=== PATIENT | female | born 1945 | race Caucasian/White ===

== ENCOUNTER 2016-07-01 09:59 | Emergency (ER) | payer OTHER, MEDICARE ==
[~2016-07-01] VITALS: Ht 167.6 cm; Wt 85.7 kg
[~2016-07-01 09:59] MED LIST: RISPERIDONE0.5 MG PO; SERTRALINE HYD100 MG PO; SIMVASTATIN40 MG PO; SUPER B COMPLEX1 TAB PO; VIACTIV CALCIUM PO
--- NOTE | 2016-07-01 10:03 | ED MVC/FALL/TRAUMA COMPLAINT ---
History of Present Illness General Chief Complaint: Fall Stated Complaint: FALL X1WEEK AGO, BILATERAL LOWER LEG/FEET Source: patient, old records, EMS Exam Limitations: no limitations Vital Signs & Intake/Output Vital Signs & Intake/Output Vital Signs Date Time Temp Pulse Resp B/P Pulse O2 O2 Flow FiO2 Ox Delivery Rate 07/01 1109 76 18 154/66 98 Room Air 07/01 1004 98.6 95 18 176/72 95 Room Air ED Intake and Output 07/02 0000 07/01 1200 Intake Total Output Total Balance Patient 189 lb Weight Allergies Coded Allergies: demeclocycline (SORE IN MOUTH, TONGUE SWELLING 07/01/16) Uncoded Allergies: APPLE JUICE (HIVES 06/25/13) Reconcile Medications Calcium/Phytonadione/Vitamin (Viactiv Calcium Plus D 500 MG-40 Mcg-500 Iu) ( Unknown Strength) CTB 2 TAB PO DAILY SUPPLEMENT (Reported) Cholecalciferol (Vitamin D3) (Vitamin D) 2,000 UNIT TABLET 1 TAB PO DAILY SUPPLEMENT (Reported) Ferrous Sulfate, Dried (IRON) 159 MG (45 MG IRON) TABLET.ER 1 TAB PO DAILY SUPPLEMENT (Reported) Risperidone 0.5 MG TABLET 1 TAB PO QPM MENTAL HEALTH (Reported) SERTRALINE HCL (Sertraline Hydrochloride) 100 MG TABLET 1 TAB PO DAILY PANIC DISORDER/ANXIETY (Reported) Simvastatin 40 MG TABLET 1 TAB PO QPM CHOLESTEROL (Reported) Vitamin B Complex (Super B Complex W/B-12) 1 TAB TAB 1 TAB PO DAILY SUPPLEMENT (Reported) Vitamin K2 40 MCG TABLET 2 TAB PO DAILY SUPPLEMENT (Reported) Triage Nurses Notes Reviewed? yes Onset: Abrupt Duration: day(s): (10), constant, waxing and waning Timing: recent history Severity: mild Severity Numbers: 3 Injuries/Fall Location: lower extremity Method of Injury: fall Loss of Consciousness: no loss of consciousness No Modifying Factors: none Associated Symptoms: BRUISING TO ANKLE HPI: 71-year-old female with history of osteoporosis high cholesterol presents emergency room today complaining of right knee and left foot and ankle pain since June 21 when she fell down 2 steps while at home she states she hit her head against the wall or did not black out. She states since then she is grossly worsening bruising and swelling to her left foot and swelling to her right knee for which she has not taken any medication. Patient states she's been able to ambulate without any difficulty however came in to make sure everything was okay. She denies any other injury fall no neck or back pain no hip pain and there is no prodromal chest pain shortness of breath palpitations dizziness or lightheadedness (CARMEL PHOENIX) Past History Travel History Traveled to [place] past 21 day No Medical History Any Pertinent Medical History? see below for history Cardiovascular: HLD Musculoskeletal: OSTEOPORSIS Tetanus Vaccine: Surgical History Surgical History: N Psychosocial History What is your primary language Nauruan Family History Hx Contributory? No (CARMEL PHOENIX) Review of Systems Review of Systems Constitutional: Reports: see HPI. All Other Systems: Reviewed and Negative Comments Review of systems: See HPI, All other systems negative. Constitutional, no chills no fever, no malaise HEENT: no sore throat no congestion, no ear pain Cardiovascular: No chest pain , no palpitation , Skin, no rashes, no change in skin Respiratory: No dyspnea no cough no sputum GI: No nausea no vomiting, no diarrhea : No dysuria No hematuria Muscle skeletal: joint pain, joint swelling, no back pain, no neck pain, Neurologic: no headache Psych: No stres Heme/endocrine: No bruising no bleeding Immunology: No lymphadenopathy, (CARMEL PHOENIX) Physical Exam Physical Exam General Appearance: well developed/nourished, alert Comments: Well-developed well-nourished person in no acute distress HEENT: Normal EENT exam; PERRL, EOMI, HEAD is atraumatic. moist mucous membranes. Neck: Supple, normal range of motion without pain or tenderness Back: Nontender, no CVA tenderness. Full range of motion Cardiovascular: Regular rate and rhythms no murmurs rubs Respiratory: No respiratory distress. Patient speaking in full complete sentences. Breath sounds clear to auscultation bilaterally: NO W/R/R Abdomen: Soft, nontender nondistended, no appreciable organomegaly. Normal bowel sounds. No rebound/guarding, upper Extremity: No edema, full range of motion of extremities, normal and equal pulses bilaterally, 5 out of 5 strength noted to bilateral upper extremities Hip/Pelvis: Atraumatic/Stable. FROM. No pain with pelvic compression Knee: RIGHT KNEE IS Atraumatic/stable. FROM. No joint swelling, no effusion. No laxity. Negative marcia/anterior drawer test. No pain with ROM Leg: Atraumatic. Nontender. No edema, 5 out of 5 strength in the lower extremity, normal dorsiflexion of great toe bilaterally, gross sensation is intact, patellar tendon reflex 2+ bilaterally. Ankle/Foot: left foot with healing ecchymosis over the dorsal surface of the foot, nontender, no swelling, right foot is Atraumatic/stable. Skin intact. FROM. No swelling, no effusion. No laxity on exam Pulses: Normal/equal DP/PT pulses bilaterally. Brisk cap refill Neuro: Alert oriented x3, motor sensory normal. There were no obvious focal neurologic abnormalities. Skin: No appreciable rash on exposed skin, skin is warm and dry. Psych: Mood and affect is normal, memory and judgment is normal. Core Measures ACS in differential dx? No Severe Sepsis Present: No Septic Shock Present: No (MOISÉS MOJICA,CARMEL) Progress Differential Diagnosis: C/T/L spine injury, ext injury, pelvis injury, spinal cord injury Plan of Care: Orders Procedure Date/time Status Durable Medical Equipment 07/01 1146 Active X-rays ordered patient resting in no apparent distress patient declining any pain when offered Discussed patient x-ray results pneumatic boot was applied to the left foot case and x-ray results were discussed with Dr. Pennington. The patient will follow up with her orthopedist Dr. hendrix this week, advised need For supportive care rest ice, Tylenol Motrin advise close follow-up with her primary care physician return anytime sooner with any concerns answered all her questions. They feel comfortable plan (MOISÉS MOJICA,CARMEL) Diagnostic Imaging: Viewed by Me: Radiology Read. Discussed w/RAD: Radiology Read. Radiology Impression: PATIENT: WILLIAM GARNER PRESENT AGE: 71 PATIENT ACCOUNT NO: [id number] : 46 LOCATION: [facility] ORDERING PHYSICIAN: CARMEL MOJICA SERVICE DATE: 07/01/16-1016 EXAM TYPE: RAD - XRY-ANKLE 3 OR MORE VIEWS L; XRY-FOOT COMPLETE, LEFT; XRY-KNEE COMPLETE RIGHT EXAMINATION: XR KNEE, RIGHT. Left foot. Left ankle CLINICAL INFORMATION: Fall with pain COMPARISON: June 20, 2013 TECHNIQUE: Five-view right knee. Three-view left foot. Three-view left ankle. FINDINGS: There is a large amount soft tissue swelling seen about the lateral malleolus with an oblique nondisplaced distal fibular fracture. No widening of the medial mortise joint space is seen. There is a left ankle effusion. Calcaneal spurs sites of insertion of the Achilles and plantar tendons present. There is no evidence of acute fracture or dislocation of the left foot. Calcaneal spurs seen sites of insertion of Achilles and plantar tendons. There is no evidence of acute fracture or dislocation of the right knee. No right knee effusion is seen. Right knee joint spaces are maintained. IMPRESSION: Nondisplaced oblique fracture of the left lateral malleolus. Calcaneal spurs without fracture of the left foot. No acute bony abnormality of the right knee with no right knee effusion identified. DICTATED BY: JEAN-PIERRE ROSA MD DATE/TIME DICTATED:07/01/161116 DEHAIRING MACHINE TENDER:GILBERT DATE/TIME TRANSCRIBED:07/01/161116 CONFIDENTIAL, DO NOT COPY WITHOUT APPROPRIATE AUTHORIZATION. <Electronically signed in Other Vendor System> SIGNED BY: JEAN-PIERRE ROSA MD 07/01/16 1 (CARMEL PHOENIX) Departure Departure Time of Disposition: 1151 Disposition: HOME OR SELF CARE Condition: Stable Clinical Impression Primary Impression: Fibula fracture Referrals: OFELIA HUERTA,DARA ADAMS MD,RADHA Chi (PCP/Family) Additional Instructions: Follow-up with orthopedist dr hendrix. Rest ice pneumatic boot as discussed return with any concerns Departure Forms: Customer Survey General Discharge Information (CARMEL PHOENIX) PA/UNDERWATER TRAPPER Co-Sign Statement Statement: ED Attending supervision documentation- [X] I saw and evaluated the patient. I have also reviewed all the pertinent lab results and diagnostic results. I agree with the findings and the plan of care as documented in the PA's/UNDERWATER TRAPPER's documentation. [X] I have reviewed the ED Record and agree with the PA's/UNDERWATER TRAPPER's documentation. [] Additions or exceptions (if any) to the PAs/UNDERWATER TRAPPER's note and plan are summarized below: [] (VLADISLAV HUERTA,RENAN)
[2016-07-01] MEDS ORDERED: VITAMIN D2000 UNI1 PO (10:56)
[2016-07-01] MEDS ORDERED: VITAMIN K240 MCG PO (10:57)
[2016-07-01] MEDS ORDERED: IRON159 MG PO (10:58)
[2016-07-01 11:09] VITALS: BP 154/66
--- NOTE | 2016-07-01 11:31 | RADIOLOGY REPORT ---
EXAMINATION: XR KNEE, RIGHT. Left foot. Left ankle CLINICAL INFORMATION: Fall with pain COMPARISON: June 20, 2013 TECHNIQUE: Five-view right knee. Three-view left foot. Three-view left ankle. FINDINGS: There is a large amount soft tissue swelling seen about the lateral malleolus with an oblique nondisplaced distal fibular fracture. No widening of the medial mortise joint space is seen. There is a left ankle effusion. Calcaneal spurs sites of insertion of the Achilles and plantar tendons present. There is no evidence of acute fracture or dislocation of the left foot. Calcaneal spurs seen sites of insertion of Achilles and plantar tendons. There is no evidence of acute fracture or dislocation of the right knee. No right knee effusion is seen. Right knee joint spaces are maintained. IMPRESSION: Nondisplaced oblique fracture of the left lateral malleolus. Calcaneal spurs without fracture of the left foot. No acute bony abnormality of the right knee with no right knee effusion identified.
== END 2016-07-01 12:11 ==
LOC: ERH 09:59
DX: S82.62XA Displaced fracture of lateral malleolus of left fibula, initial encounter for closed fracture (principal); W10.9XXA Fall (on) (from) unspecified stairs and steps, initial encounter
CPT/HCPCS: 73562-RT; 73610-LT; 73630-LT